=== PATIENT | female | born 1975 | race African-American/Black ===

== ENCOUNTER 2022-12-12 18:36 | Inpatient (IN) | payer OTHER ==
[2022-12-12 19:49] VITALS: BMI 22.1
[2022-12-12] MEDS ORDERED: DICYCLOMINE HCL 10 MG CAPSULE PO PRN (20:24)
[2022-12-12] MEDS ORDERED: MAGNESIUM HYDROX 2400MG/30ML ORAL SUSPENSION 30 ML CUP PO PRN (20:24)
[2022-12-12] MEDS ORDERED: P-EPHED 60MG/TRIPROLIDI 2.5MG TABLET PO PRN (20:24)
[2022-12-12] MEDS ORDERED: NALOXONE HCL (KLOXXADO) 8 MG SPRAY NS PRN (20:24)
[2022-12-12] MEDS ORDERED: NALOXONE HCL 0.4 MG/ML VIAL IM PRN (20:24)
[2022-12-12] MEDS ORDERED: ACETAMINOPHEN 325 MG TABLET (FP) PO PRN (20:24)
[2022-12-12] MEDS ORDERED: LOPERAMIDE HCL 2 MG CAPSULE PO PRN (20:24)
[2022-12-12] MEDS ORDERED: hydrOXYzine PAMOATE 25 MG CAPSULE (FP) PO PRN (20:24)
[2022-12-12] MEDS ORDERED: guaiFENesin 200 MG/10 ML 10 ML UNIT-DOSE CUPS PO PRN (20:24)
[2022-12-12] MEDS ORDERED: BENZOCAINE/MENTHOL (CHLORASEPTIC ) LOZENGE MM PRN (20:24)
[2022-12-12] MEDS ORDERED: NICOTINE POLACRILEX 2 MG GUM BUC PRN (20:24)
[2022-12-12] MEDS ORDERED: IBUPROFEN 400 MG TABLET (FP) PO PRN (20:24)
[2022-12-12] MEDS ORDERED: ONDANSETRON *ODT* 4 MG TABLET SL PRN (20:24)
[2022-12-12] MEDS ORDERED: NICOTINE 10 MG CARTRIDGE (INHALER) IH PRN (20:24)
[2022-12-12] MEDS ORDERED: POLYETHYLENE GLYCOL (HEALTHYLAX) 3350 17 GM PACKET PO PRN (20:24)
[2022-12-12] MEDS ORDERED: MAG HYDROX/AL HYDROX/SIMETH 30 ML UNIT-DOSE CUP PO PRN (20:24)
[2022-12-12] MEDS ORDERED: cloNIDine HCL 0.1 MG TABLET PO PRN (20:26)
[2022-12-12] MEDS: THIAMINE HCL 100 MG TABLET (FP) PO SCH (21:27)
[2022-12-12] MEDS: diazePAM 5 MG TABLET PO PRN (21:27)
[2022-12-12] MEDS: MELATONIN 5 MG TABLETS PO PRN (21:29)
[2022-12-12] MEDS: SULFAMETHOXAZOLE/TRIMETHOPRIM 800MG/160MG D.S. TABLET PO SCH (22:00)
[2022-12-13] MEDS: SULFAMETHOXAZOLE/TRIMETHOPRIM 800MG/160MG D.S. TABLET PO SCH ×2 (09:43→22:07)
[2022-12-13] MEDS: PRENATAL VITAMINS W/ FOLIC ACID TABLET (FP) PO SCH (09:44)
[2022-12-13] MEDS: diazePAM 5 MG TABLET PO PRN (09:44)
[2022-12-13] MEDS ORDERED: cloNIDine HCL 0.1 MG TABLET PO PRN (10:22)
[2022-12-13] MEDS ORDERED: methaDONE HCL 10 MG TABLET (FOR DETOX USE ONLY) PO ONE (10:22)
[2022-12-13] MEDS ORDERED: chlordiazePOXIDE HCL 25 MG CAPSULE PO PRN (10:22)
[2022-12-13 10:49] LABS: ALBUMIN 2.5 g/dl (3.4-5.0); BLOOD UREA NITROGEN 10.8 mg/dL (7-18); CALCIUM 8.3 mg/dL (8.5-10.1)
[2022-12-13 10:53] LABS: CREATININE 0.6 mg/dL (0.55-1.3)
[2022-12-13 10:54] LABS: BILIRUBIN,TOTAL 0.2 mg/dL (0.2-1); TOT PROT 5.5 g/dl (6.4-8.2)
[2022-12-13 10:56] LABS: HEMATOCRIT 33.3 % (32.4-45.2); HEMOGLOBIN 11.1 GM/dL (10.7-15.3); MCH 26.7 pg (25.7-33.7); MCHC 33.2 g/dl (32.0-36.0); MEAN CELL VOLUME 80.3 fl (80-96); MEAN PLT VOLUME 9.4 fl (7.5-11.1); PLATELET COUNT 211 10^3/uL (134-434); RBC 4.15 M/mm3 (3.60-5.2); RDW 16.6 % (11.6-15.6); WHITE BLOOD COUNT 5.7 K/mm3 (4.0-10.0)
[2022-12-13] MEDS: chlordiazePOXIDE HCL 25 MG CAPSULE PO SCH ×3 (11:03→22:07)
[2022-12-13] MEDS: THIAMINE HCL 100 MG TABLET (FP) PO SCH (22:07)
[2022-12-14] MEDS: chlordiazePOXIDE HCL 25 MG CAPSULE PO SCH ×4 (05:49→22:13)
[2022-12-14] MEDS: METHOCARBAMOL 500 MG TABLET PO PRN ×2 (05:50→22:13)
[2022-12-14] MEDS: ACETAMINOPHEN 325 MG TABLET (FP) PO PRN (05:51)
[2022-12-14] MEDS: PRENATAL VITAMINS W/ FOLIC ACID TABLET (FP) PO SCH (09:42)
[2022-12-14] MEDS: SULFAMETHOXAZOLE/TRIMETHOPRIM 800MG/160MG D.S. TABLET PO SCH ×2 (09:42→22:16)
[2022-12-14] MEDS: IBUPROFEN 600 MG TABLET (FP) PO PRN (17:33)
[2022-12-14] MEDS: MELATONIN 5 MG TABLETS PO PRN (22:13)
[2022-12-14] MEDS: THIAMINE HCL 100 MG TABLET (FP) PO SCH (22:13)
[2022-12-15] MEDS: chlordiazePOXIDE HCL 25 MG CAPSULE PO SCH ×4 (05:37→22:09)
[2022-12-15] MEDS: IBUPROFEN 600 MG TABLET (FP) PO PRN ×3 (05:39→19:27)
[2022-12-15] MEDS ORDERED: methaDONE HCL 10 MG TABLET (FOR DETOX USE ONLY) PO ONE (10:00)
[2022-12-15] MEDS: PRENATAL VITAMINS W/ FOLIC ACID TABLET (FP) PO SCH (10:12)
[2022-12-15] MEDS: SULFAMETHOXAZOLE/TRIMETHOPRIM 800MG/160MG D.S. TABLET PO SCH ×2 (10:12→22:09)
[2022-12-15] MEDS: METHOCARBAMOL 500 MG TABLET PO PRN (19:27)
[2022-12-15] MEDS: THIAMINE HCL 100 MG TABLET (FP) PO SCH (22:09)
[2022-12-15] MEDS: MELATONIN 5 MG TABLETS PO PRN (22:09)
[2022-12-16] MEDS ORDERED: chlordiazePOXIDE HCL 10 MG CAPSULE PO PRN
[2022-12-16] MEDS: chlordiazePOXIDE HCL 10 MG CAPSULE PO SCH ×4 (05:47→22:20)
[2022-12-16] MEDS: IBUPROFEN 600 MG TABLET (FP) PO PRN ×2 (05:51→17:48)
[2022-12-16] MEDS: PRENATAL VITAMINS W/ FOLIC ACID TABLET (FP) PO SCH (10:05)
[2022-12-16] MEDS: SULFAMETHOXAZOLE/TRIMETHOPRIM 800MG/160MG D.S. TABLET PO SCH ×2 (10:06→22:15)
[2022-12-16] MEDS: BISMUTH SUBSALICYLATE 524 MG/30 ML PO PRN (11:17)
[2022-12-16] MEDS: ACETAMINOPHEN 325 MG TABLET (FP) PO PRN (16:34)
[2022-12-16] MEDS: THIAMINE HCL 100 MG TABLET (FP) PO SCH (22:16)
[2022-12-17] MEDS: chlordiazePOXIDE HCL 10 MG CAPSULE PO SCH ×2 (05:35→17:20)
[2022-12-17] MEDS ORDERED: methaDONE HCL 10 MG TABLET (FOR DETOX USE ONLY) PO ONE (10:00)
[2022-12-17] MEDS: METHOCARBAMOL 500 MG TABLET PO PRN (10:09)
[2022-12-17] MEDS: PRENATAL VITAMINS W/ FOLIC ACID TABLET (FP) PO SCH (10:09)
[2022-12-17] MEDS: SULFAMETHOXAZOLE/TRIMETHOPRIM 800MG/160MG D.S. TABLET PO SCH ×2 (10:09→21:20)
[2022-12-17] MEDS: BISMUTH SUBSALICYLATE 524 MG/30 ML PO PRN (12:39)
[2022-12-17] MEDS: IBUPROFEN 600 MG TABLET (FP) PO PRN (17:21)
[2022-12-17] MEDS: THIAMINE HCL 100 MG TABLET (FP) PO SCH (21:20)
[2022-12-17] MEDS: MELATONIN 5 MG TABLETS PO PRN (21:21)
[2022-12-18] MEDS ORDERED: chlordiazePOXIDE HCL 10 MG CAPSULE PO ONE (05:00)
[2022-12-18] MEDS: IBUPROFEN 600 MG TABLET (FP) PO PRN (05:33)
[2022-12-18 08:57] VITALS: BP 111/64; PULSE 91; RESP 20; TEMP 97.5
== END 2022-12-18 08:55 | disposition home or self-care (01) | DRG 773 ==
LOC: YASAS 18:36 → Y3N 20:26
PROVIDERS: ADMIT Allergy & Immunology; ATTEND Family Medicine
PROC: HZ2ZZZZ Detoxification Services for Substance Abuse Treatment (ICD-10-PCS; principal; 2022-12-12)
DX: F11.23 Opioid dependence with withdrawal (principal); F10.230 Alcohol dependence with withdrawal, uncomplicated; F14.20 Cocaine dependence, uncomplicated; F16.20 Hallucinogen dependence, uncomplicated; F12.20 Cannabis dependence, uncomplicated; F17.210 Nicotine dependence, cigarettes, uncomplicated; L02.31 Cutaneous abscess of buttock
CPT/HCPCS: 36415; 80053; 81025; 85027; 86780; 93005; 93010; C9803-CS; U0003; U0005